=== PATIENT | female | born 1995 ===

== ENCOUNTER 2017-05-05 13:56 | Emergency (ER) | payer OTHER ==
--- NOTE | 2017-05-05 17:43 | UC ---
Jamarcus Phoenix Gabriel, scribed for Shlomo Washington MD on 05/05/17 at 1659 . HPI Febrile Illness - HPI Summary HPI Summary: This patient is a 21 year old F presenting to [facility] with a chief complaint of general illness that began on 04-05-17 and hasnt gotten better. Patient reports CP, post nasal drip, clear nasal discharge, and fever. Patient denies myalgia and sinus pressure. Pt has been seen for this illness and diagnosed with viral illness in March. After this she was seen at [facility] and given a steroid nasal spray. - History of Current Complaint Chief Complaint: UCRespiratory Time Seen by Provider: 05/05/17 16:51 Hx Obtained From: Patient Hx Last Menstrual Period: 04/30/17 Onset/Duration: Started Weeks Ago, Still Present Timing: Constant Initial Severity: Mild Current Severity: Mild Pain Intensity: 0 Pain Scale Used: 0-10 Numeric Alleviating Factors: OTC Medicine Associated Signs and Symptoms: Negative - myalgia and sinus pressure, Other: - CP , post nasal drip, clear nasal discharge, and fever - Allergy/Home Medications Allergies/Adverse Reactions: Allergies Allergy/AdvReac Type Severity Reaction Status Date / Time No Known Allergies Allergy Verified 05/05/17 15:21 Home Medications: Home Medications Albuterol HFA INHALER* [Ventolin HFA Inhaler*] 2 puff INH Q4H PRN 05/05/17 [ History Confirmed 05/05/17] Fluticasone Propionate [Flovent Hfa] 10.6 gm IH BID 05/05/17 [History Confirmed 05/05/17] Ibuprofen TAB* [Motrin TAB* 400 MG] 400 mg PO Q6H PRN 05/05/17 [History Confirmed 05/05/17] Mometasone Furoate [Nasonex] 50 mcg NA DAILY 05/05/17 [History Confirmed ] Mv-Min/Vit C/Glut/Lysine/Hb124 [Airborne] 1 tab PO DAILY 05/05/17 [History Confirmed 05/05/17] Vit C/Ascorbate Calcium,Sodium [Liquid C 500] 500 mg PO DAILY 05/05/17 [History Confirmed 05/05/17] PMH/Surg Hx/FS Hx/Imm Hx Cardiovascular History: Other - HLD Other Cardiovascular History: . Other History Of: Negative For: HIV, Hepatitis B - Surgical History Surgical History: None - Family History Known Family History: Positive: Hypertension - and HLD Negative: Blood Disorder - Social History Alcohol Use: None Substance Use Type: None Smoking Status (MU): Never Smoked Tobacco Review of Systems Constitutional: Fever ENT: Nasal Discharge, Other - post nasal drip Cardiovascular: Chest Pain All Other Systems Reviewed And Are Negative: Yes Physical Exam Triage Information Reviewed: Yes Vital Signs: Initial Vital Signs Temp 100.1 F 05/05/17 15:17 Pulse 108 05/05/17 15:17 Resp 16 05/05/17 15:17 BP 123/80 05/05/17 15:17 Pulse Ox 100 05/05/17 15:17 Vital Signs Reviewed: Yes - Additional Comments General: mildly ill appearing, no pain distress Skin: warm, color reflects adequate perfusion, dry Head: normal Eyes: EOMI, IGLESIA ENT: positive rhinorrhea Neck: supple, nontender Respiratory: CTA, breath sounds present Cardiovascular: RRR Abdomen: soft, nontender Bowel: present Musculoskeletal: normal, strength/ROM intact Neurological: normal, sensory/motor intact, A&O x3 Psychological: affect/mood appropriate Course/Dx - Course Course Of Treatment: Medications reviewed. BP noted and advised to follow up with PCP. DISCUSSED RESULTS WITH PATIENT. WILL TREAT FLU WITH TAMIFLU. PATIENT HAS BEEN SICK FOR 1 MONTH SO, WILL ALSO TREAT WITH AN ANTIBIOTIC. - Diagnoses Clinic Provider Diagnoses: INFLUENZA. BRONCHITIS. Elevated blood pressure without history of hypertension. Discharge - Discharge Plan Condition: Stable Disposition: HOME Prescriptions: Azithromyxin MICHAEL (NF) [Z-Michael (Zithromax) 250 mg tabs #6] 2 tab PO .TODAY, THEN 1 DAILY #6 tab Oseltamivir CAP* [Tamiflu CAP*] 75 mg PO BID #10 cap Patient Education Materials: Influenza (ED), Acute Bronchitis (ED) Referrals: Ashlie Chao PA [Primary Care Provider] - Additional Instructions: FOLLOW UP WITH YOUR DOCTOR. GET RECHECKED FOR ANY WORSENING OF YOUR CONDITION OR QUESTIONS OR CONCERNS. Your blood pressure was elevated during todays visit; please follow up with your primary care provider within a week for further evaluation. The documentation as recorded by the Jamarcus samuel Gabriel accurately reflects the service I personally performed and the decisions made by me, Shlomo Washington MD.
[2017-05-05 19:15] VITALS: BP 114/71
== END 2017-05-05 18:22 | disposition home or self-care (01) ==
LOC: UCEAST 13:56
DX: J10.1 Influenza due to other identified influenza virus with other respiratory manifestations (principal); J40 Bronchitis, not specified as acute or chronic; R03.0 Elevated blood-pressure reading, without diagnosis of hypertension; E78.5 Hyperlipidemia, unspecified
CPT/HCPCS: 87502; 99202; G0463